=== PATIENT | female | born 1995 ===

== ENCOUNTER 2018-03-28 11:38 | Outpatient (REF) | payer MEDICAID, SELFPAY ==
[2018-03-30 13:49] LABS: Chlamydia Result Negative; GC Result Negative; Specimen Description CERVIX
== END 2018-03-28 11:58 ==
LOC: NCHCN 11:38
PROVIDERS: PCP Family Medicine; Visit Provider Family Medicine
DX: N89.8 Other specified noninflammatory disorders of vagina (principal); Z11.3 Encounter for screening for infections with a predominantly sexual mode of transmission
CPT/HCPCS: 87491; 87591; 87480; 87510; 87660

== ENCOUNTER 2020-03-17 13:05 | Outpatient (REF) | payer MEDICAID, SELFPAY ==
--- NOTE | 2020-03-17 11:15 | PAPFT_PTH ---
PATIENT: Emebr Chawla LOC: [facility] U#:[id number] AGE/SX: 24/F ROOM: RE03/17/[address]: Collin Menchaca : 1995 BED: DIS: 03/17/2020 SPEC #: [id number] RECD: 03/18/20 12:47 STATUS: PEDRO RECherry #: [id number] SANIYA: 03/17/20 11:[address]: Collin Menchaca DEPT: [facility] Cytology RECD BY: Gene Larios Tissues: 1 - CX/ENDOCX FOR PAP SMEARS Procedures: PAP THIN PREP/[facility] Screening Comments: [id number] (CHLAMYDIA/GC)
[2020-03-21 01:29] LABS: Chlamydia Result Negative (Negative); GC Result Negative (Negative)
== END 2020-03-17 13:25 ==
LOC: NCHCN 13:05
PROVIDERS: PCP Family Medicine; Visit Provider Family Medicine
DX: R87.612 Low grade squamous intraepithelial lesion on cytologic smear of cervix (LGSIL) (principal); Z11.3 Encounter for screening for infections with a predominantly sexual mode of transmission
CPT/HCPCS: 87491; 87591; 88142

== ENCOUNTER 2020-04-14 02:08 | Outpatient (CLI) | payer MEDICAID, SELFPAY ==
--- NOTE | 2020-04-14 08:30 | RT.EKG_ITS ---
APPROVED REPORT Exam: Resting ECG Patient Location: O HR:63 bpm ECG Measurements Heart Rate 63 AXIS IL 134 P 47 QRSd 88 QRS 68 QT 427 T 42 QTc 439 Conclusion Sinus arrhythmia...V-rate 49- 76, variation>10%
== END 2020-04-14 02:28 ==
PROVIDERS: PCP Family Medicine; Visit Provider Family Medicine
DX: Z79.899 Other long term (current) drug therapy (principal)
CPT/HCPCS: 93005; 93010